=== PATIENT | female | born 1940 | race Two or more races ===

== ENCOUNTER 2019-11-30 05:07 | Day surgery (SDC) | payer OTHER ==
[2019-11-25 18:01] VITALS: BMI 32.4
[2019-11-30 12:36] VITALS: TEMP 97.1
[2019-11-30 13:29] VITALS: BP 137/51; PULSE 94
--- NOTE | 2019-12-01 18:33 | PATH ---
Surgical Pathology Report Patient Name: EDUARDO LAGUERRE [facility]. Rec. #: [id number] /Age/Gender: 1940 (Age: 79) / F Account: [id number] Location: [facility] Taken: 11/30/2019 Received: 11/30/2019 Reported: 12/01/2019 Physicians: Rosio Restrepo M.D. Specimen(s) Received A: SECOND PORTION DUODENUM B: ANTRUM Clinical History Anemia, abdominal pain Postoperative diagnosis: Linear ulceration in gastric body Final Diagnosis A. SECOND PORTION OF DUODENUM, BIOPSY: DUODENAL MUCOSA WITH NO SIGNIFICANT PATHOLOGIC CHANGE. NO HISTOLOGIC EVIDENCE OF INTRAEPITHELIAL LYMPHOCYTOSIS. B. GASTRIC ANTRUM, BIOPSY: GASTRIC MUCOSA WITH CHRONIC GASTRITIS. IMMUNOSTAIN FOR H. PYLORI IS NEGATIVE. NEGATIVE FOR INTESTINAL METAPLASIA. Electronically Signed Jero Mullen M.D. Gross Description A. Received in formalin, labeled "biopsy second portion of duodenum" is a smith, irregular portion of soft tissue measuring 0.1 cm. in greatest dimension. The specimen is submitted in toto in one cassette. B. Received in formalin, labeled "biopsy gastric antrum" is a smith, irregular portion of soft tissue measuring 0.2 cm. in greatest dimension. The specimen is submitted in toto in one cassette. 11/30/2019 saudi11/30/2019
== END 2019-11-30 13:20 | disposition home or self-care (01) ==
LOC: JASU-ENDO 05:07
PROVIDERS: ATTEND Internal Medicine Gastroenterology
PROC: 0DB68ZX Excision of Stomach, Via Natural or Artificial Opening Endoscopic, Diagnostic (ICD-10-PCS; 2019-11-30)
PROC: 0DB98ZX Excision of Duodenum, Via Natural or Artificial Opening Endoscopic, Diagnostic (ICD-10-PCS; principal; 2019-11-30 12:18)
DX: K29.50 Unspecified chronic gastritis without bleeding (principal); K25.9 Gastric ulcer, unspecified as acute or chronic, without hemorrhage or perforation; K44.9 Diaphragmatic hernia without obstruction or gangrene; D64.9 Anemia, unspecified; R10.9 Unspecified abdominal pain
CPT/HCPCS: 82962; 88305-TC; 88342-TC